=== PATIENT | female | born 2000 | race Caucasian/White ===

== ENCOUNTER 2021-08-24 22:54 | Emergency (ER) | payer SELFPAY ==
[~2021-08-24] VITALS: Ht 165.1 cm; Wt 68.0 kg
[2021-08-24] MEDS ORDERED: CARDIZEM30 MG PO (23:15)
[2021-08-25] MEDS ORDERED: METOPROLOL SUCC25 MG PO (00:52)
--- NOTE | 2021-08-26 06:28 | EKG ---
[facility] [address] [facility] [place], [place] [address] Signed Sinus tachycardia Otherwise normal ECG No previous ECGs available Confirmed by AURELIANO JENSEN MD ([id number] on 08/26/2021 6:28:03 AM Electronically Signed By: AURELIANO JENSEN MD 08/26/2128 PATIENT NAME: ABILIO ABDUL Electrocardiogram DATE OF : [birth year] PHYSICIAN: AURELIANO JENSEN MD REPORT #: [id number] REPORT IS CONFIDENTIAL AND NOT TO BE RELEASED WITHOUT AUTHORIZATION
== END 2021-08-25 01:06 | disposition home or self-care (01) ==
LOC: ED 22:54
DX: I47.1 Supraventricular tachycardia (principal); J45.909 Unspecified asthma, uncomplicated; Z88.0 Allergy status to penicillin; Z88.8 Allergy status to other drugs, medicaments and biological substances; Z79.899 Other long term (current) drug therapy
CPT/HCPCS: 36415; 80048; 85025; 93005; 93010; 96374; 96375; 99285-25; J0153; J2060; J2405; J7030